=== PATIENT | female | born 1990 | race Caucasian/White ===

== ENCOUNTER 2017-07-05 14:48 | Emergency (ER) | payer OTHER ==
[~2017-07-05] VITALS: Ht 157.5 cm; Wt 68.4 kg
[~2017-07-05 14:48] MED LIST: CALC600T5 PO; FERR240T9 PO; PREN-29 PO
[2017-07-05 14:52] VITALS: Ht 157.5 cm; Wt 68.4 kg
[2017-07-05] MEDS ORDERED: KETOROLAC 30 MG INJ IM STA (16:22)
[2017-07-05] MEDS ORDERED: DIPHENHYDRAMINE 50 MG INJ IM ONE (16:30)
[2017-07-05] MEDS ORDERED: PROCHLORPERAZINE 10 MG TAB PO ONE (16:30)
[2017-07-05 16:38] LABS: URINE BLOOD (Dip) POC Trace-lysed (NEGATIVE)
--- NOTE | 2017-07-05 17:06 | RADRPT ---
PROCEDURE: Ultrasound pelvis CLINICAL INDICATION: Pelvic pain, non OB TECHNIQUE: Transabdominal and endovaginal scan COMPARISON: 11/13/2015 FINDINGS: Uterus measures 8.2 x 5.2 x 5.3 cm on the transabdominal scan. Endometrial central echo complex esa ures 0.6 cm. Linear echogenic structure in the endometrium suggestive of an IUD. Free fluid noted in the cul-de-sac and adnexa. Right ovary measures 3.6 x 2 x 2.4 cm, total volume 9.2 cc. Left ovary measures 2.3 x 1.3 x 1.9 cm, total volume 3 cc. Both ovaries demonstrate preserved flow on color Doppler imaging. IMPRESSION: IUD in endometrial canal. Small free fluid noted in the pelvis. RPTAT: [facility] Physician Kiran Date Time Electronically viewed and signed by Physician Kiran on 07/05/2017 17:06 MB/
[2017-07-05] MEDS ORDERED: ASPI1TAB31 PO (17:40)
[2017-07-05] MEDS ORDERED: IBUP-1542 PO (17:40)
--- NOTE | 2017-07-05 17:55 | ERD ---
ER Documentation Chief Complaint Chief Complaint headache , vomiting , abd pain today HPI 26-year-old female complaining of pelvic pain since last night. Patient stated the pain comes and goes, stronger this morning, is fading now. She described pain as contraction-like. She had a Mirena IUD placed about 1 year ago. Patient also complaining of migraine headache since this morning. Patient states that she had a sensation of "tunnel vision" this morning, her right eye became blurry at 4 for short period time. And she developed a migraine headache on the right side shortly after, along with photophobia.. She vomited multiple times, last episode was 1 hour ago. She has a history of migraine headaches in the past, she had not had it for several years. She did not take any medication for headache. Denies fever or chills. Denies diarrhea. Denies blurry vision at this time. Denies one-sided weakness or numbness. ROS All systems reviewed and are negative except as per history of present illness. Medications Home Meds Active Scripts Aspirin/Acetaminophen/Caffeine (Excedrin Migraine Caplet) 1 Each Tablet, 1 EACH PO Q6 Y for HEADACHE, #30 TAB Prov:AIRAM LEMUS. 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 [employer] MECHANIC 07/05/17 Reported Medications Calcium Carbonate (CALCIUM) 600 Mg Tablet, 600 MG PO, TAB 12/22/15 Ferrous Gluconate (Iron) 1 Tab Tablet, 1 TAB PO, TAB 12/22/15 Vit-Fe Fumarate-FA* (Cuauhtemoc Tablet*) 1 Tab Tablet, 1 TAB PO AC DINNER, TAB 05/09/14 Allergies Allergies: Coded Allergies: No Known Allergies (Verified Allergy, Mild, 12/27/15) PMhx/Soc History of Surgery: Yes (L ARM) Anesthesia Reaction: No Hx Neurological Disorder: No Hx Respiratory Disorders: No Hx Cardiac Disorders: No Hx Psychiatric Problems: No Hx Miscellaneous Medical Probl: No Hx Alcohol Use: Yes Hx Substance Use: No Hx Tobacco Use: Yes Smoking Status: Never smoker Physical Exam Vitals Vital Signs Date Time Temp Pulse Resp B/P Pulse Ox O2 Delivery O2 Flow Rate FiO2 07/05/17 14:52 98.1 75 18 118/76 99 Physical Exam General: Well-developed, well-nourished, conscious and coherent, in no distress Skin: Warm and dry without rash, good texture and turgor Head: Normocephalic without evidence of trauma Eyes: Sclera and conjunctivae normal; pupils equal, round, and reactive to light; extraocular movements are intact Ears: Canals are patent. Tympanic membranes are clear Chest: Normal AP diameter. Good expansion without retractions. Nontender. Lungs are clear to auscultate bilaterally with good tidal volume Heart: Regular rate and rhythm. No murmur, rub, or gallops heard Abdomen: Soft and nontender without masses, guarding, or rebound. Bowel sounds are active. No hepatosplenomegaly Back: Without spinal or CVA tenderness Pelvis: Suprapubic tenderness. Extremities: Full range of motion. Good strength bilaterally. No clubbing, cyanosis, or edema. Peripheral pulses are intact. Sensation intact Neuro: Alert and oriented 4; GCS 15. Cranial nerves II - XII intact. Motor sensory exam nonfocal. Moves all extremities. Deep tendon reflexes 2+ in all extremities. Speech clear. No pronator drift. Gait steady. Results 24 hrs Laboratory Tests Test 07/05/17 16:39 Bedside Urine pH (LAB) 6.5 Bedside Urine Protein (LAB) 2+ Bedside Urine Glucose (UA) Negative Bedside Urine Ketones (LAB) Negative Bedside Urine Blood Trace-lysed Bedside Urine Nitrite (LAB) Negative Bedside Urine Leukocyte Esterase (L Negative Current Medications Medications (Trade) Dose Ordered Sig/Lencho Route PRN Reason Start Time Stop Time Status Last Admin Dose Admin Ketorolac Tromethamine (Toradol) 30 mg ONCE STAT IM 07/05/17 16:22 07/05/17 16:24 DC 07/05/17 16:39 Diphenhydramine HCl (Benadryl) 50 mg ONCE ONCE IM 07/05/17 16:30 07/05/17 16:31 DC 07/05/17 16:39 Prochlorperazine (Compazine) 10 mg ONCE ONCE PO 07/05/17 16:30 07/05/17 16:31 DC 07/05/17 16:42 PROCEDURE: Ultrasound pelvis CLINICAL INDICATION: Pelvic pain, non OB TECHNIQUE: Transabdominal and endovaginal scan COMPARISON: 11/13/2015 FINDINGS: Uterus measures 8.2 x 5.2 x 5.3 cm on the transabdominal scan. Endometrial central echo complex measures 0.6 cm. Linear echogenic structure in the endometrium suggestive of an IUD. Free fluid noted in the cul-de-sac and adnexa. Right ovary measures 3.6 x 2 x 2.4 cm, total volume 9.2 cc. Left ovary measures 2.3 x 1.3 x 1.9 cm, total volume 3 cc. Both ovaries demonstrate preserved flow on color Doppler imaging. IMPRESSION: IUD in endometrial canal. Small free fluid noted in the pelvis. RPTAT: AAOO Physician Kiran Date Time Electronically viewed and signed by Jt Hill Physician on 07/05/2017 17: 06 MB/ CC: AIRAM LEMUS. W[employer] MECHANIC Procedures/MDM Well-appearing 26-year-old presented ED with complaint of pelvic pain and migraine. Urine dip is negative. I doubt patient has urinary tract infection. Pelvic ultrasound showed IUD is in the endometrial canal, not in the proper position. It is likely that misplaced IUD may be the cause of patient's pelvic pain. 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 Patient has negative urine test, I doubt ectopic , ovarian torsion, or ruptured ovarian cyst. Toradol and Benadryl IM along with Compazine p.o. given to the patient in the ED for migraine. Patient reports improvement pain after medication. I doubt sinus or dental infection, TMJ syndrome, pseudotumor cerebri, meningitis, encephalitis, giant cell arteritis, glaucoma, subarachnoid hemorrhage, subdural or epidural hematoma, intracranial bleeding or tumor. Patient appears well, stable for discharge and outpatient management. Medical decision making shared with patient and family. Education provided to patient and family. Patient and family expressed understanding of the plan. Medications on discharge: Excedrin migraine, ibuprofen. Follow-up: Primary care provider in 2-3 days or return to ED if worse. Disclaimer: Inadvertent spelling and grammatical errors are likely due to EHR/ dictation software use and do not reflect on the overall quality of patient care. Also, please note that the electronic time recorded on this note does not necessarily reflect the actual time of the patient encounter. Departure Diagnosis: Primary Impression: Pelvic pain Additional Impression: Migraine Migraine type: with aura Status migrainosus presence: without status migrainosus Intractability: not intractable Qualified Code: G43.109 - Migraine with aura and without status migrainosus, not intractable Condition: Stable Patient Instructions: Preventing Migraine Headaches: Triggers, Preventing Migraine Headaches: Medications and Lifestyle Changes, Headache, Migraine ( Classical), Pelvic Pain, Unknown Cause Referrals: [facility] YOU HAVE RECEIVED A MEDICAL SCREENING EXAM AND THE RESULTS INDICATE THAT YOU DO NOT HAVE A CONDITION THAT REQUIRES URGENT TREATMENT IN THE EMERGENCY DEPARTMENT. FURTHER EVALUATION AND TREATMENT OF YOUR CONDITION CAN WAIT UNTIL YOU ARE SEEN IN YOUR DOCTORS OFFICE WITHIN THE NEXT 1-2 DAYS. IT IS YOUR RESPONSIBILITY TO MAKE AN APPOINTMENT FOR FOLOW-UP CARE. IF YOU HAVE A PRIMARY DOCTOR --you should call your primary doctor and schedule an appointment IF YOU DO NOT HAVE A PRIMARY DOCTOR YOU CAN CALL OUR PHYSICIAN REFERRAL HOTLINE AT IF YOU CAN NOT AFFORD TO SEE A PHYSICIAN YOU CAN CHOSE FROM THE FOLLOWING [facility] [address] [facility] [address] [facility] [facility] [address] [facility] [address] [facility] [facility] [address] [facility]. [facility]. [address] [facility] Hours: 8:00 am - 5:00 pm Additional Instructions: Call your primary care doctor TOMORROW for an appointment during the next 2-3 days.See the doctor sooner or return here if your condition worsens before your appointment time. AIRAM LEMUS NP Jul 05, 2017 17:55
== END 2017-07-05 18:00 | disposition home or self-care (01) ==
LOC: FTE 14:48
DX: R10.2 Pelvic and perineal pain (principal); G43.109 Migraine with aura, not intractable, without status migrainosus; Z87.891 Personal history of nicotine dependence
CPT/HCPCS: 76830; 76856; 81003; 96372; J1200; J1885; Z7502; Z7610